=== PATIENT | male | born 1985 | race Hispanic/Latino ===

== ENCOUNTER 2019-08-24 21:19 | Emergency (ER) | payer SELFPAY ==
[2019-08-24] MEDS ORDERED: BUPIVACAINE/PF (0.5%) 5 MG/1 ML 10 ML VIAL INFILTRATI ONE (23:49)
[2019-08-24] MEDS ORDERED: LIDOCAINE (1%) 10 MG/1 ML VIAL 20 ML MDV INFILTRATI ONE (23:49)
--- NOTE | 2019-08-24 23:50 | XRay Report ---
RIGHT THUMB 3 VIEWS 2246 INDICATION: Right thumb laceration COMPARISON: None available. FINDINGS: Bandaging overlies the thumb. No fractures or dislocations are seen. No definite foreign isis dies are identified. Signer Name: Enrique Holley MD Signed: 08/24/2019 11:46 PM Workstation Name: [id number]
--- NOTE | 2019-08-25 01:08 | Emergency Department Report ---
- General Chief Complaint: Wound/Laceration Stated Complaint: GLASS IN HAND Time Seen by Provider: 08/24/19 22:37 Source: patient Mode of arrival: Ambulatory Limitations: No Limitations - History of Present Illness Initial Comments: Patient is a 33-year-old male who presents emergency room with complaints of lacerations to the right thumb that occurred around 10 PM tonight. He states that he dropped a beer bottle on the ground and went to pick it up very quickly and accidentally cut himself when he was tossing into the garbage can. He is able to move the thumb without difficulty. He denies any numbness or weakness. He states his last tetanus immunization was last year. He denies any past medical history or allergies to medications. - Related Data Allergies Allergy/AdvReac Type Severity Reaction Status Date / Time No Known Allergies Allergy Unverified 08/24/19 21:53 ED Review of Systems ROS: Stated complaint: GLASS IN HAND Other details as noted in HPI Comment: All other systems reviewed and negative ED Past Medical Hx - Past Medical History Previous Medical History?: No - Surgical History Past Surgical History?: No - Social History Smoking Status: Never Smoker ED Physical Exam - General Limitations: No Limitations General appearance: alert, in no apparent distress - Head Head exam: Present: atraumatic, normocephalic - Eye Eye exam: Present: normal appearance - ENT ENT exam: Present: mucous membranes moist - Extremities Exam Extremities exam: Present: other (there are 3 lacerations, 0.5 cm, 1 cm, and 2 cm with a skin avulsion flap missing, present to the palmar surface of the right thumb on the distal end, no obvious foreign body, no muscle/tendon involvement, FROM of the right digits, hand, wrist, no deformity, pt can do full extension, flexion, thumb opposition, flex against weight without difficulty of the right thumb, neurovascularly intact) - Neurological Exam Neurological exam: Present: alert, oriented X3 - Psychiatric Psychiatric exam: Present: normal affect, normal mood - Skin Skin exam: Present: warm, dry ED Course Vital Signs 08/24/19 08/25/19 21:47 01:12 Temperature 98.3 F 98.2 F Pulse Rate 80 68 Respiratory 16 19 Rate Blood Pressure 110/80 Blood Pressure 109/73 [Right] O2 Sat by Pulse 98 98 Oximetry - Laceration /Wound Repair Right Palm Finger Wound Location: upper extremity (palmar surface of the right distal thumb) Wound Length (cm): 2 (there are 3 lacerations, 0.5 cm, 1 cm, 2 cm) Wound's Depth, Shape: irregular Wound Explored: clean Irrigated w/ Saline (ccs): 500 Betadine Prep?: Yes Anesthesia: 1% Lidocaine, 0.5% Sensorcaine Volume Anesthetic (ccs): 8 (4 cc of 1% lidocaine, 4 cc of 0.5 % bupivacaine) Wound Debrided: extensive Wound Repaired With: sutures Suture Size/Type: 4:0 Number of Sutures: 10 Layer Closure?: No Sterile Dressing Applied?: Yes Progress: Wound irrigated with saline and thoroughly scrubbed with Betadine, 8 cc of anesthetic used with a mix of 4 cc of 1% lidocaine without epinephrine and 4 cc of 0.5% bupivacaine, anesthetic used for digital block, Betadine prep again, sterile gloves worn, sterile drapes applied, 4-0 Prolene used for skin closure, 10 sutures placed, patient tolerated well, no complications, bleeding controlled ED Medical Decision Making - Radiology Data Radiology results: report reviewed RIGHT THUMB 3 VIEWS 2246 INDICATION: Right thumb laceration COMPARISON: None available. FINDINGS: Bandaging overlies the thumb. No fractures or dislocations are seen. No definite foreign bodies are identified. Signer Name: Enrique Holley MD Signed: 08/24/2019 11:46 PM Workstation Name: [id number] Transcribed By: GJ Dictated By: Enrique Holley MD Electronically Authenticated By: Enrique Holley MD Signed Date/Time: 08/24/192345 DD/ 43 TD/TT: - Medical Decision Making Patient is a 33-year-old male who presents emergency room with complaints of lacerations to the right thumb that occurred around 10 PM tonight. He states t hat he dropped a beer bottle on the ground and went to pick it up very quickly and accidentally cut himself when he was tossing into the garbage can. He is able to move the thumb without difficulty. He denies any numbness or weakness. He states his last tetanus immunization was last year. He denies any past medical history or allergies to medications. Vitals are normal. On exam: there are 3 lacerations, 0.5 cm, 1 cm, and 2 cm with a skin avulsion flap missing, present to the palmar surface of the right thumb on the distal end, no obvious foreign body, no muscle/tendon involvement, FROM of the right digits, hand, wrist, no deformity, pt can do full extension, flexion, thumb opposition, flex against weight without difficulty of the right thumb, neurovascularly intact. Wounds irrigated with saline and thoroughly scrubbed with Betadine and repaired per procedure note. XR right thumb: Bandaging overlies the thumb. No fractures or dislocations are seen. No definite foreign bodies are identified. Discussed all results with patient. advised pt Sutures will need to be removed in 7 to 10 days. Please keep area clean, dry, covered. May wash with soap and water and immediately dry. No hot tub, no pool, no soaking in water. Follow-up with a primary care doctor in 3 to 5 days. Return to the emergency room for any new or worsening symptoms or any signs of infection. Critical care attestation.: If time is entered above; I have spent that time in minutes in the direct care of this critically ill patient, excluding procedure time. ED Disposition Clinical Impression: Laceration of right thumb Qualifiers: Encounter type: initial encounter Damage to nail status: without damage Foreign body presence: without foreign body Qualified Code(s): S61.011A - Laceration without foreign body of right thumb without damage to nail, initial encounter Disposition: - TO HOME OR SELFCARE Is pt being admited?: No Does the pt Need Aspirin: No Condition: Stable Instructions: Suture Care (ED), Laceration (ED) Additional Instructions: Sutures will need to be removed in 7 to 10 days. Please keep area clean, dry, covered. May wash with soap and water and immediately dry. No hot tub, no pool, no soaking in water. Follow-up with a primary care doctor in 3 to 5 days. Return to the emergency room for any new or worsening symptoms or any signs of infection. Referrals: CECY BAKER MD [Staff Physician] - 3-5 Days [facility] [Provider Group] - 3-5 Days [facility] [Outside] - 3-5 Days [facility] [Outside] - 3-5 Days Time of Disposition: 01:10 Print Language: YORUBA
[2019-08-25 01:12] VITALS: BP 109/73
== END 2019-08-25 01:21 | disposition home or self-care (01) ==
LOC: ED 21:19
DX: S61.011A Laceration without foreign body of right thumb without damage to nail, initial encounter (principal); W25.XXXA Contact with sharp glass, initial encounter; Y93.89 Activity, other specified; Y92.89 Other specified places as the place of occurrence of the external cause; Y99.8 Other external cause status
CPT/HCPCS: 99283